=== PATIENT | female | born 1940 | race Caucasian/White ===

== ENCOUNTER 2017-01-12 13:38 | Outpatient (CLI) ==
[2013-08-10 16:50] VITALS: BMI 22.4
[2017-01-12 14:10] LABS: HEMATOCRIT 27.1 % (37.0-47.0); HEMOGLOBIN 9.2 g/dl (12.0-16.0); MEAN CORPUSCULAR HEMOGLOBIN 28.4 pg (27.0-31.0); MEAN CORPUSCULAR HGB CONC 33.9 (31.8-35.4); MEAN CORPUSCULAR VOLUME 83.6 fl (81.0-99.0); PLATELET COUNT 61 10^3/uL (140-440); RED BLOOD COUNT 3.24 10^6/ul (4.20-5.40); WHITE BLOOD COUNT 3.17 K/ul (4.6-10.2)
[2017-01-12 14:20] LABS: ALBUMIN 3.4 g/dL (3.4-5.0); ALBUMIN/GLOBULIN RATIO 1.36; ANION GAP 13.1; BILIRUBIN,TOTAL 0.34 mg/dL (0.00-1.20); BUN/CREATININE RATIO 18.51; CALCIUM 8.7 mg/dL (8.2-10.2); CREATININE 0.81 mg/dL (0.60-1.30); POTASSIUM 4.1 mmol/L (3.5-5.10); TOTAL PROTEIN 5.9 g/dL (5.8-8.1)
[2017-01-12 14:28] LABS: ANISOCYTOSIS NOT PRESENT (NOT PRESENT)
[2017-01-12 14:58] LABS: HYPOCHROMASIA 3+ (NOT PRESENT)
[2017-01-12 14:59] LABS: MICROCYTOSIS 1+ (NOT PRESENT)
== END 2017-01-12 13:39 | disposition home or self-care (01) ==
LOC: LAB 13:38
PROVIDERS: ATTEND Internal Medicine Hematology & Oncology
DX: R53.1 Weakness (principal)
CPT/HCPCS: 36415; 80053; 85007; 85025